=== PATIENT | female | born 1995 | race Two or more races ===

== ENCOUNTER 2018-08-08 10:50 | Emergency (ER) | payer BC, MEDICAID ==
--- NOTE | 2018-08-08 12:23 | EDPHY ---
General Time Seen by Provider: 08/08/18 12:05 Narrative: CHIEF COMPLAINT: "bartholin is swollen" HISTORY OF PRESENT ILLNESS: Patient presents by private vehicle with complaints of "my bartholin is swollen. " She reports pain in the right labia this started approximately Friday, maybe before. It was mild at 1st. Steadily worsening over the past few days, with significant worsening for the past 48 hr. No drainage. No fever. So severe that she has difficulty walking at this time. She has no generalized abdominal pain. No vaginal bleeding or discharge. No trauma injury. She was seen yesterday in Urgent Care with a performed incision and drainage and placed her on Bactrim twice daily. She has no improvement and has actually worsened overnight. She has no other associated complaints or modifying factors REVIEW OF SYSTEMS: 10 systems were reviewed and negative with the exception of the elements mentioned in the history of present illness. PCP: None SPECIALISTS: None PAST MEDICAL HISTORY: Denies medical diagnoses PAST SURGICAL HISTORY: Denies any surgical history SOCIAL HISTORY: Nonsmoker. Occasional alcohol. Works at a local gym. Lives independently FAMILY HISTORY: Noncontributory EXAMINATION: General Appearance: Alert, no distress. Nontoxic Head: normocephalic, atraumatic Eyes: Pupils equal and round, no conjunctival pallor or injection ENT, Mouth: Mucous membranes moist Neck: Normal inspection, supple, non-tender Respiratory: No retractions or distress Cardiovascular: Tachycardic rate with regular rhythm. Gastrointestinal: Abdomen is soft and nontender no tympany rigidity. No guarding. No CVA tenderness. : Female bone density technician (Alma Delia GRAFF) present for exam. Right labia majora is markedly swollen and inflamed with a central area of incision without drainage, bleeding or foreign body. Skin: Warm and dry, no rash. Skin changes in the vulva as above Extremities: Nontender, no pedal edema Psychiatric: Mood and affect normal DIFFERENTIAL DIAGNOSES: Including but not limited to Bartholin gland cyst, abscess, cellulitis MDM: 12:10 p.m. Large right-sided Bartholin gland cyst with attempted incision and drainage yesterday with worsening symptoms over the past 24 hr. She is in significant discomfort from this but she does not appear to be toxic or acutely ill. This appears to be locally inflamed. I do feel she would benefit from incision and drainage. I discussed risks, benefits alternatives and she would like to proceed. I do feel she will need some IV pain medication prior to anesthetizing. I will also discussed with on-call movie operator further expertise. 12:30 p.m. Case discussed with Ob physician Dr. Quach. She states that she would be happy to come evaluate the patient for the procedure the emergency department in approximately 1 hr. 3:00 p.m. Patient has been evaluated by Dr. Quach. She has personally performed the procedure. Please see her note for documentation. She agrees with discharge home with continuation of Bactrim short course of pain medication. She does not recommend Keflex and feels this is unnecessary, thus I have deleted this prescription. She has discussed wound care and catheter care with the patient and outpatient follow-up. I have re-evaluated the patient. She reports she feels significantly better from time of presentation. She expressed her gratitude for are bedside on manner and for are requesting the care of the OB physician. She is well-appearing and discharged home stable condition. SUPERVISION: This patient was independently evaluated without direct involvement of or examination by the attending physician. CONSULTATION: OB Gynn, Dr. Quach - History Smoking Status: Never smoked - Objective Vital Signs: Initial Vital Signs Temperature (C) 98.2 F 08/08/18 10:59 Heart Rate 118 H 08/08/18 10:59 Respiratory Rate 18 08/08/18 10:59 Blood Pressure 119/79 08/08/18 10:59 O2 Sat (%) 95 08/08/18 10:59 O2 Delivery Mode Room Air Allergies/Adverse Reactions: benzonatate [From Tessalon Perles] Allergy (Verified 08/08/18 11:01) Home Medications: Medication Instructions Recorded oxyCODONE HCL/ACETAMINOPHEN 1 each PO Q4-6PRN PRN #7 tablet 08/08/18 [Percocet 5-325 mg Tablet] Medications Given: Discontinued Medications Fentanyl (Sublimaze) 50 mcg IVP EDNOW ONE Stop: 08/08/18 14:18 Last Admin: 08/08/18 14:23 Dose: 50 mcg Sodium Chloride (Ns) 1,000 mls @ 0 mls/hr IV EDNOW ONE; Wide Open PRN Reason: Protocol Stop: 08/08/18 12:25 Last Admin: 08/08/18 14:22 Dose: Not Given Ketamine HCl 5 mg/ Syringe 0.1 mls @ 6 mls/hr IVP ONCE ONE Stop: 08/08/18 12:25 Last Admin: 08/08/18 14:22 Dose: Not Given Lorazepam (Ativan Injection) 1 mg IVP EDNOW ONE Stop: 08/08/18 12:25 Last Admin: 08/08/18 14:30 Dose: Not Given Oxycodone/Acetaminophen (Percocet 5/325) 1 tab PO EDNOW ONE Stop: 08/08/18 12:50 Last Admin: 08/08/18 12:52 Dose: 1 tab Departure - Departure Disposition: Home, Routine, Self-Care Clinical Impression: Bartholin's gland cyst Instructions: Bartholin Cyst (ED), Incision and Drainage (ED) Additional Instructions: 1. Wound care per Dr. Quach with recommended warm compresses and Sitz baths twice daily as much as possible. 2. Continue Bactrim as previously prescribed to completion 3. Percocet pain medication as prescribed as needed 4. ED precautions for worsening pain, fever, vaginal discharge or bleeding 5. The small catheter with a balloon on it may fall out - that's OK if it happens. 6. Apply Neosporin or triple antibiotic ointment to the incision area to keep it open as long as possible, before and after the catheter comes out. 7. Please call [phone], [facility], to make an appointment with Dr. Melina Quach on Friday08/15/18 afternoon. She is the "deck doc" / admissions specialist doc that day - and tell the cylinder die machine helper she gave you permission to schedule in the afternoon. If the catheter has not come out - she will remove it that day. Referrals: Melina Quach MD [Medical Doctor] - As per Instructions Stand Alone Forms: Work Excuse Prescriptions: oxyCODONE HCL/ACETAMINOPHEN [Percocet 5-325 mg Tablet] 1 each PO Q4-6PRN PRN #7 tablet PRN Reason: Pain, Breakthrough
[2018-08-08] MEDS ORDERED: LORazepam 2 MG/ML INJ IVP ONE (12:24)
[2018-08-08] MEDS ORDERED: KETAMINE 5 MG in SYRINGE 0 ML IVP ONE (12:24)
[2018-08-08] MEDS ORDERED: NS 1,000 ML IV ONE (12:24)
[2018-08-08] MEDS ORDERED: OXYCODONE/APAP 5/325 TAB PO ONE (12:49)
[2018-08-08] MEDS ORDERED: fentaNYL 100 MCG/2 ML INJ IVP ONE (14:17)
--- NOTE | 2018-08-08 15:03 | PDCONSULT ---
Translator/Interpreter Note: cc: Bartholin's cyst more painful. HPI: 22 yo G0 here with a painful Bartholin's cyst. Symptoms first started 4-5 d ago. Went to Urgent Care yesterday - had an attempted unsuccessful drainage of cyst which was a very upsetting experience. She was started on Bactrim. Since yesterday, she has gotten worse, so painful that she has difficulty walking or sitting. She has not had any drainage from the cyst. Sexually active with one female partner currently, though has had male partners in the past. Reg menses q month. 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 ROS: 10 point done - neg except as above. PE: VSS Temp Pulse Resp BP Pulse Ox 36.8 C 73 14 120/78 98 08/08/18 15:22 08/08/18 15:22 08/08/18 15:22 08/08/18 15:22 08/08/18 15:22 Gen: pleasant, NAD skin: warm, dry neuro: A &O x3 musculoskeletal: normal gait and strength CV: RRR resp: breathing easily abd: soft, flat, NT, no rebound or guarding pelvic: NEFG, except that R labia is erythematous, exquisitely tender, about twice the size of the right, and has a puncture wound in a hair bearing area. All around the puncture wound the tissue is greatly indurated. Right Bartholin's cyst is approximately 3x3cm. vagina: pink, no lesions Procedure: B/R/A discussed with the patient, verbal consent obtained. RN, Alma Delia, present, and gave pt 50mcg Fentanyl IV just prior to the procedure. Betadine prep to entire vulva and vaginal introitus. 8ml of 0.5% marcaine infiltrated just inside Reina's line on the right side and into the Bartholin's cyst wall externally. When the anesthetic was adequate, an incision was made just inside Reina's line. When the cyst wall was incised, there was a release of a copious amount of purulent material. Almost immediately, the patient felt some pain relief. After no more purulent material could be expressed, a Morrison Catheter was inserted and the balloon was filled with 2ml of fluid. The end of the catheter was tucked into the vagina. Pt tolerated the procedure well. Imp: 22 G0 with a Bartholin's gland abscess - now s/p I & D and placement of Morrison catheter. Due to 2 d in a row of procedures, will have her continue the full course of Bactrim prescribed yesterday. KAUSHAL Otoole, in the ED, who consulted me, gave her an Rx for #7 of Percocet. Plan: see Dc instructions: 1. Wound care per Dr. Quach with recommended warm compresses and Sitz baths twice daily as much as possible. 2. Continue Bactrim as previously prescribed to completion 3. Percocet pain medication as prescribed as needed 4. ED precautions for worsening pain, fever, vaginal discharge or bleeding 5. The small catheter with a balloon on it may fall out - that's OK if it happens. 6. Apply Neosporin or triple antibiotic ointment to the incision area to keep it open as long as possible, before and after the catheter comes out. 7. Please call [phone], [facility], to make an appointment with Dr. Melina Quach on Friday08/15/18 afternoon. She is the "deck doc" / ship's electronic warfare officer doc that day - and tell the wood drilling machine operator she gave you permission to schedule in the afternoon. If the catheter has not come out - she will remove it that day. Melina Quach MD, FACOG [facility]
[2018-08-08 15:23] VITALS: BP 120/78
== END 2018-08-08 15:31 | disposition home or self-care (01) ==
PROC: 0U9L00Z Drainage of Vestibular Gland with Drainage Device, Open Approach (ICD-10-PCS; principal; 2018-08-08)
DX: N75.0 Cyst of Bartholin's gland (principal); E86.9 Volume depletion, unspecified
CPT/HCPCS: 96374; J3010